=== PATIENT | female | born 1965 | race Caucasian/White ===

== ENCOUNTER → 2017-09-16 | Outpatient (CLI) | payer BC | END | disposition home or self-care (01) | LOC: MAMMO 10:01 | DX: Z12.31 Encounter for screening mammogram for malignant neoplasm of breast (principal) | CPT/HCPCS: 77067 ==

== ENCOUNTER → 2020-05-22 | Outpatient (CLI) | payer BC ==
--- NOTE | 2020-05-22 17:05 | KCIC ---
Bilateral digital screening mammograms Reason for examination: Routine screening. Comparison is made to previous study dated September 16, 2017 and priors Routine CC and MLO digital views obtained. Interpretation was made with the benefit of CAD. The skin and nipples show no abnormalities. No abnormal axillary lymph nodes are seen. The breast par enchyma is heterogeneously dense. (Breast density: Category C.) There are no suspicious masses, suspi cious calcifications or architectural distortion. Left axillary tail intramammary lymph node is stabl e. Benign right breast calcification. Impression: Negative mammogram. Recommend routine screening. ?Your patient's mammogram demonstrates that she has dense breast tissue (breast density category C or D), which could hide abnormalities, and if she has other risk factors for breast cancer that have be en identified, she might benefit from supplemental screening tests that may be suggested by you as he r ordering physician. Dense breast tissue, in and of itself, is a relatively common condition. Theref ore, this information is not provided to cause undue concern, but rather to raise your awareness and to promote discussion with your patient regarding the presence of other risk factors, in addition to dense breast tissue. Your patient's mammography results will be sent to her. BI-RAD Category 2: Benign. "Our facility is accredited by the [employer] Mammography [employer]." This patient's information has been entered into a reminder system for the patient to be notified wit h the results of her examination and a target date for the next mammogram. Electronically signed by: Richmond Howard MD (05/22/2020 5:02 PM) [id number]
== END ==
LOC: KCIC MAMMO 10:22
PROVIDERS: ATTEND Family Medicine
DX: Z12.31 Encounter for screening mammogram for malignant neoplasm of breast (principal)
CPT/HCPCS: 77067

== ENCOUNTER → 2021-02-07 | Outpatient (CLI) | payer BC ==
--- NOTE | 2021-02-07 13:00 | KCIC ---
Exam: Right Upper Quadrant Ultrasound 02/07/2021 8:00 AM Indication: Reason: ABDOMINAL PAIN, RUQ / Technique: Multiple realtime grayscale sonographic images were obtained over the abdomen. Static imag es were submitted for interpretation. Comparisons: None Findings: Visualized portions of the pancreas are unremarkable. The IVC is patent. The liver is normal in size measuring 15 cm longitudinally. There is a normal hepatic echotexture. N o focal lesions are identified. The gallbladder is nondistended. There is no evidence for cholelithiasis. There is no wall thickening , or pericholecystic fluid. The common bile duct is within normal limits measuring 2.2 mm in diameter . Multiple small renal cysts are noted on the right. Largest measures 1.2 cm in diameter. The kidneys o therwise unremarkable in appearance measuring 10.3 cm in length. No ascites is identified Impression: 1. No evidence of acute intra-abdominal abnormality. 2. Small right renal cysts largest measuring 1.2 cm in diameter Electronically signed by: Adrian Jiang MD (02/07/2021 12:57 PM) [id number]
== END ==
LOC: KCIC US 07:52
PROVIDERS: ATTEND Nurse Practitioner Family
DX: N28.1 Cyst of kidney, acquired (principal); R10.10 Upper abdominal pain, unspecified
CPT/HCPCS: 76705